=== PATIENT | female | born 1980 | race Caucasian/White ===

== ENCOUNTER 2022-10-01 15:25 | Outpatient (CLI) | payer OTHER, SELFPAY ==
--- NOTE | ~2022-10-01 | MM_ITS ---
EXAMINATION: MM screening pepito BI w sebas HISTORY: Screening mammogram, family history of breast cancer in her mother. TECHNIQUE: Craniocaudal and mediolateral oblique 3-D tomosynthesis images were obtained and synthetic 2-D images were generated. CAD analysis was submitted and interpreted. COMPARISON: None, baseline BREAST PARENCHYMAL COMPOSITION: The breasts are heterogeneously dense, which may obscure small masses . FINDINGS: RIGHT BREAST: There is asymmetry in the subareolar aspect of the right breast on the craniocaudal vie w. LEFT BREAST: No suspicious mass, calcification, or architectural distortion are identified to suggest malignancy. IMPRESSION: 1. Right breast asymmetry. 2. Additional mammographic views and possible breast ultrasound are recommended. BI-RADS Category 0: Incomplete: Needs additional imaging evaluation. Reviewed, dictated and finalized at location A. CULAR PATHOLOGIST IMPRESSION: 1. Right breast asymmetry. 2. Additional mammographic views and possible breast ultrasound are recommended . BI-RADS Category 0: Incomplete: Needs additional imaging evaluation.
== END 2022-10-01 15:26 | disposition home or self-care (01) ==
PROVIDERS: Visit Provider Obstetrics & Gynecology
DX: Z12.31 Encounter for screening mammogram for malignant neoplasm of breast (principal); R92.8 Other abnormal and inconclusive findings on diagnostic imaging of breast
CPT/HCPCS: 77063; 77067

== ENCOUNTER 2022-10-19 11:58 | Outpatient (CLI) | payer OTHER, SELFPAY ==
--- NOTE | ~2022-10-19 | MMUS_ITS ---
EXAMINATION: MM diagnostic pepito RT w sebas, US breast RT complete HISTORY: Follow-up right breast asymmetry TECHNIQUE: Additional 3-D tomosynthesis images of the right breast were performed and synthetic 2-D i mages were generated. CAD analysis was submitted and interpreted. High resolution complete right [place] st ultrasound was performed. COMPARISON: 10/01/2022 BREAST PARENCHYMAL COMPOSITION: The breasts are heterogeneously dense, which may obscure small masses FINDINGS: MAMMOGRAPHIC FINDINGS: Focal subareolar asymmetries of the right breast are less apparent with spot compression and mediolat eral views, most likely superimposed fibroglandular content. ULTRASOUND: Complete US of all 4 quadrants of the right breast and retroareolar region was reviewed. At 12:00 in the subareolar location there is a cluster of microcysts measuring 9 mm in aggregate. At 11:00, 3 cm from the nipple, there is a 2 mm cysts, too small adequately characterize. IMPRESSION: 1. Probable benign complicated cysts of the right breast at 12:00 and 11:00. 2. Recommend 6 month follow-up Limited right breast ultrasound. BI-RADS category 3, probably benign findings. Reviewed, dictated and finalized at location A. IMPRESSION: 1. Probable benign complicated cysts of the right breast at 12:00 and 11:00. 2. Recommend 6 month follow-up Limited right breast ultrasound. BI-RADS category 3, probably benign findings.
== END 2022-10-19 11:59 | disposition home or self-care (01) ==
LOC: ANHIMG 12:01
PROVIDERS: Visit Provider Obstetrics & Gynecology
DX: R92.8 Other abnormal and inconclusive findings on diagnostic imaging of breast (principal)
CPT/HCPCS: 76641; 77061; 77065; G0279

== ENCOUNTER 2023-04-22 12:38 | Outpatient (CLI) | payer OTHER, SELFPAY ==
--- NOTE | ~2023-04-22 | US_ITS ---
US breast RT limited DATE: 04/22/2023 13:31 INDICATION: Six-month follow-up of probable benign, located cyst of right breast at 11:00 and 12:00 TECHNIQUE: Real-time imaging targeted at 11:00 and 12:00 COMPARISON: 10/19/2022 diagnostic right mammogram and complete right breast ultrasound 10/01/2022 bilateral screening mammogram FINDINGS: 11:00 3 cm from nipple: 2.4 x 2.7 mm sonolucency with through transmission posterior enhancement cons istent with simple cyst Subareolar area: Parallel circumscribed hypoechoic 3.6 x 6.7 x 7.5 mm solid area with no internal vas cularity or posterior shadowing, benign in appearance Prior 12:00 subareolar septated cyst is no longer evident. No suspicious mass or shadowing is detected. IMPRESSION: BI-RADS Category 2: Benign Recommendation: Routine annual mammographic screening Reviewed, dictated and finalized at [facility]. Reviewed, dictated and finalized at location A.
== END 2023-04-22 12:39 | disposition home or self-care (01) ==
PROVIDERS: PCP Family Medicine; Visit Provider Obstetrics & Gynecology
DX: R92.8 Other abnormal and inconclusive findings on diagnostic imaging of breast (principal)
CPT/HCPCS: 76642

== ENCOUNTER 2023-11-16 11:27 | Outpatient (CLI) | payer OTHER, SELFPAY ==
--- NOTE | ~2023-11-16 | MM_ITS ---
EXAMINATION: MM screening pepito BI w sebas HISTORY: Screening mammogram TECHNIQUE: Craniocaudal and mediolateral oblique 3-D tomosynthesis images were obtained and synthetic 2-D images were generated. CAD analysis was submitted and interpreted. COMPARISON: 04/22/2023 and limited right breast ultrasound 10/19/2022 diagnostic right mammogram and complete right breast ultrasound examination 10/01/2022 bilateral screening mammogram BREAST PARENCHYMAL COMPOSITION: The breasts are heterogeneously dense, which may obscure small masses . FINDINGS: There is no evidence of suspicious mass, calcification, or architectural distortion to sugg est malignancy in either breast. There has been no suspicious interval change. IMPRESSION: 1. No mammographic evidence of malignancy. 2. Recommend routine screening mammography in one year. BI-RADS Category 1: Negative Reviewed, dictated and finalized at location A.
== END 2023-11-16 11:28 ==
PROVIDERS: PCP Obstetrics & Gynecology; Visit Provider Obstetrics & Gynecology
DX: Z12.31 Encounter for screening mammogram for malignant neoplasm of breast (principal)
CPT/HCPCS: 77063; 77067

== ENCOUNTER 2024-11-20 10:33 | Outpatient (CLI) | payer OTHER, SELFPAY ==
--- NOTE | ~2024-11-20 | MM_ITS ---
EXAMINATION: MM screening pepito BI w sebas HISTORY: Screening mammogram, family history of breast cancer in her mother. TECHNIQUE: Craniocaudal and mediolateral oblique 3-D tomosynthesis images were obtained and synthetic 2-D images were generated. CAD analysis was submitted and interpreted. COMPARISON: 11/16/2023, 10/01/2022 BREAST PARENCHYMAL COMPOSITION:Dense: The breasts are heterogeneously dense, which may obscure small masses. FINDINGS: No suspicious mass, calcification, or architectural distortion are identified in either ramsey ast to suggest malignancy. There has been no suspicious interval change. IMPRESSION: No mammographic evidence of malignancy. Recommend routine screening mammography in one year. BI-RADS Category 1: Negative Reviewed, dictated and finalized at location .
== END 2024-11-20 10:34 | disposition home or self-care (01) ==
LOC: MICIMG 10:36
PROVIDERS: PCP Obstetrics & Gynecology; Visit Provider Obstetrics & Gynecology
DX: Z12.31 Encounter for screening mammogram for malignant neoplasm of breast (principal)
CPT/HCPCS: 77063; 77067